=== PATIENT | female | born 1930 | race Two or more races ===

== ENCOUNTER 2016-12-16 16:18 | Inpatient (IN) | payer MEDICARE, OTHER ==
[~2016-12-16] VITALS: Ht 165.1 cm; Wt 79.4 kg
[~2016-12-16 16:18] MED LIST: ALEN70TA45 PO; ARIP10TA17 PO; CLON0.1T PO; DEXL60CA3 PO; DILT240C88 PO; FENO145T20 PO; FLUT1DIS IH; GABA-532 PO; GLYB1TAB2 PO; METO25TA6 PO; OMEG1CAP55 PO; PRED20TA PO; RIVA10TA PO; SOLI10TA PO; TIOT18CA3 IH
--- NOTE | 2016-12-16 16:40 | NUR ---
PT [id number] FROM HOME: SOB, COUGH, WEAKNESS, CHILLS AND DIAPHORESIS. DTR AT FOR INFORMATION, PER DTR HER MOM HAS BEEN SICK THE PAST FEW DAYS. VSS. SATING AT 95% RA. NOTED PRODUCTIVE COUGH. IV ACCESS SEAFOOD PREPARER. SAFETY AND COMFORT MEASURES PROVIDED. WILL MONITOR.
[2016-12-16] MEDS ORDERED: IV NS 0.9% 500 ML BAG IV ONE (17:00)
[2016-12-16] MEDS ORDERED: IV NS 0.9% 500 ML IV ONE (17:07)
[2016-12-16] MEDS ORDERED: IV SET PRIMARY PUMP SET 1 EA INFUS.SET MC ONE ×2 (17:07→21:11)
[2016-12-16 17:48] LABS: BASOPHILS % (AUTO) 0.3 % (0.0-2.0); EOSINOPHILS # (AUTO) 0.1 /CMM (0.0-0.7); EOSINOPHILS % (AUTO) 1.2 % (0.0-6.0); HEMATOCRIT 34 % (33-45); HEMOGLOBIN 11.1 g/dL (11.5-14.8); LYMPHOCYTES # (AUTO) 2.5 /CMM (0.8-4.8); MEAN CORPUSCULAR HEMOGLOBIN 30 PG (26.0-33.0); MEAN CORPUSCULAR HGB CONC 33 g/dl (31.0-36.0); MEAN CORPUSCULAR VOLUME 91 fL (82-100); MONOCYTES # (AUTO) 1.3 /CMM (0.1-1.30); MONOCYTES % (AUTO) 12.3 % (2.0-12.0); NEUTROPHILS # (AUTO) 6.8 /CMM (1.8-8.9); NEUTROPHILS % (AUTO) 63.2 % (43.0-81.0); PLATELET COUNT (AUTO) 184 /CMM (150-450); RDW COEFFICIENT OF VARIATION 14.2 (11.5-15.0); RED BLOOD CELL COUNT(AUTO) 3.67 MIL/uL (4.0-5.2); WHITE BLOOD COUNT (AUTO) 10.8 K/uL (4.3-11.0)
[2016-12-16 17:53] LABS: CALCIUM, SERUM 8.6 mg/dL (8.5-10.1); CARBON DIOXIDE 27 mmol/L (21-32); CHLORIDE 108 mmol/L (98-107); CREATININE 2.1 mg/dL (0.6-1.3); GLUCOSE 115 mg/dL (74-106); POTASSIUM 4.6 mmol/L (3.5-5.1); SODIUM SERUM 145 mmol/L (136-145); UREA NITROGEN, BLOOD 37 mg/dL (7-18)
[2016-12-16 18:03] LABS: TROPONIN I < 0.017 ng/mL (0.00-0.056)
[2016-12-16 18:05] LABS: ALANINE AMINOTRANSFERASE 22 U/L (12-78); ALBUMIN 3.1 g/dL (3.4-5.0); ALKALINE PHOSPHATASE 58 U/L (46-116); ASPARTATE AMINOTRANSFERASE 15 U/L (15-37); B-TYPE NATRIURETIC PEPTIDE 2118 PG/ML (0-125); BILIRUBIN,DIRECT 0.2 mg/dL (0.0-0.2); TOTAL PROTEIN, SERUM 7.3 g/dL (6.4-8.2)
[2016-12-16 18:06] LABS: INR 1.02 (0.87-1.13); PROTHROMBIN TIME 10.9 SECS (9.5-12.7)
[2016-12-16 18:07] LABS: APPEARANCE,URINE SL CLOUDY (CLEAR); BILIRUBIN,URINE NEGATIVE (NEGATIVE); BLOOD, URINE NEGATIVE Ery/uL (NEGATIVE); COLOR,URINE DARK YELLO (YELLOW); KETONES,URINE TRACE (NEGATIVE); LEUKOCYTE ESTERASE ,URINE NEGATIVE (NEGATIVE); NITRITE, URINE NEGATIVE (NEGATIVE); PH,URINE 5.5 (5.0-8.0); PROTEIN,URINE 1+ mg/dl (NEGATIVE); UGLUCOSE NEGATIVE (NEGATIVE); UROBILINOGEN,URINE 0.2 EU/dL (0.2)
[2016-12-16 18:20] LABS: BACTERIA,URINE Few /HPF (None Seen); RBC,URINE 0-2 /HPF (0-2); SQUAMOUS EPITHELIAL CELL,UR Few /HPF (None Seen); WBC,URINE 0-2 /HPF (0-3)
[2016-12-16 18:21] LABS: URINE AMORPHOUS URATE Moderate /HPF (None Seen)
--- NOTE | 2016-12-16 18:34 | NUR ---
KURT CALLED, GHASSAN HERRERA SCADA TECHNICIAN AMMUNITION ASSEMBLY II LABORER, TRANSFERRED CALL TO
--- NOTE | 2016-12-16 18:35 | NUR ---
CALLED NURSING SUP. FOR MS BED
[2016-12-16] MEDS ORDERED: RANO500T3 PO (18:44)
[2016-12-16] MEDS ORDERED: GLYB1TAB13 PO (18:44)
[2016-12-16] MEDS ORDERED: FURO40TA5 PO (18:44)
[2016-12-16] MEDS ORDERED: SPIR25TA4 PO (18:44)
[2016-12-16] MEDS ORDERED: OMEG1CAP40 PO (18:44)
[2016-12-16] MEDS ORDERED: DILT240C88 PO (18:44)
[2016-12-16] MEDS ORDERED: MAGN400T26 PO (18:44)
[2016-12-16] MEDS ORDERED: CLON0.1T PO (18:44)
[2016-12-16] MEDS ORDERED: VALS80TA2 PO (18:44)
[2016-12-16] MEDS ORDERED: ZOLP10TA6 PO (18:44)
[2016-12-16] MEDS ORDERED: ASPI81TA2 PO (18:44)
[2016-12-16] MEDS ORDERED: MEMA10TA PO (18:44)
--- NOTE | 2016-12-16 18:54 | NUR ---
REPORT REC'D FROM RENNY VELEZ FOR DARI. CANDELARIO CANTOR IS AT THE BEDSIDE.
--- NOTE | 2016-12-16 19:04 | NUR ---
REPORT GIVEN TO RENNY FUENTES FOR DARI.
[2016-12-16] MEDS ORDERED: ONDANSETRON HCL/PF 4 MG/2 ML VIAL IVP PRN (19:30)
[2016-12-16] MEDS ORDERED: HYDROCODONE/APAP 5/325MG 1 EACH TABLET PO PRN (19:30)
[2016-12-16] MEDS ORDERED: AZITHROMYCIN 500 MG in IV D5W 250 ML IV SCH (19:30)
[2016-12-16] MEDS ORDERED: MAG HYDROX/AL HYDROX/SIMETH 30 ML UDC PO PRN (19:30)
[2016-12-16] MEDS ORDERED: CEFTRIAXONE 1 G in IV D5W 50 ML IV SCH (19:30)
[2016-12-16] MEDS ORDERED: Z GUARD REMEDY 2 OZ OINT TP PRN (19:30)
[2016-12-16] MEDS ORDERED: MAGNESIUM HYDROXIDE 30 ML UDC PO PRN (19:30)
--- NOTE | 2016-12-16 19:38 | NUR ---
RN NOTES: RECEIVED PATIENT FROM ER ACCOMPANIED BY RN, WHILE DOING INITIAL INTERVIEW AND BODY ASSESSMENT CN FOUND OUT PATIENT IS FOR TELE, DX:PNEUMONIA, CALLED [facility] RACHEL AND ENDORSED TO AUBREE(RN) AT 2004 TRANSFER TO ROOM 310-2 AT 2010PM,
[2016-12-16 20:00] VITALS: BP 121/70
[2016-12-16] MEDS ORDERED: ZOLPIDEM TARTRATE 10 MG TABLET PO PRN (20:00)
[2016-12-16] MEDS ORDERED: CLONIDINE HCL 0.1 MG TABLET PO PRN (20:00)
--- NOTE | 2016-12-16 20:22 | NUR ---
RECEIVED PATIENT FROM JOHNNY WITH DX OF PNA, ALERT AND ORIENTED X3, SWEDISH SPEAKING, NO SOB, NO RESPIRATORY DISTRESS, NOTED PRODUCTIVE COUGH, LUNG SOUNDS WITH CONGESTION TO RIGHT LOWER LOBE, TOLERATING ROOM AIR, 02 SAT 95%, ABDOMEN SOFT AND NON-TENDER, ACTIVE BOWEL SOUNDS, GENERAL SKIN CONDITION CLEAR, EDEMA TO RIGHT LEG +1, ORIENTED TO ROOM, USE OF CALL LIGHT, MEDICATIONS, IV ABX THERAPY, NEEDS ATTENDED, GRAND DAUGHTER AT THE BEDSIDE, WILL CONTINUE TO MONITOR.
[2016-12-16 20:30] VITALS: BP 121/71
[2016-12-16] MEDS ORDERED: IV D5W 50 ML IV ONE (20:39)
[2016-12-16] MEDS ORDERED: CEFTRIAXONE 1 G VIAL ONE (20:39)
[2016-12-16] MEDS ORDERED: SECONDARY IV SET 1 EA INFUS.SET MC ONE ×2 (20:40→21:03)
[2016-12-16] MEDS ORDERED: AZITHROMYCIN 500 MG VIAL ONE (20:46)
[2016-12-16] MEDS ORDERED: IV NS 0.9% 250 ML IV ONE (21:03)
--- NOTE | 2016-12-16 22:19 | NUR ---
NEW ORDER OF MODERATE SLIDING SCALE, ORDER NOTED AND CARRIED OUT, PATIENT AND GRAND DAUGHTER MADE AWARE
[2016-12-16] MEDS ORDERED: INSULIN REGULAR, HUMAN 100 UNIT/ML 10 ML VIAL ONE (22:20)
[2016-12-16] MEDS ORDERED: IV D5W 250 ML IV ONE (22:24)
[2016-12-16] MEDS ORDERED: *INSULIN REGULAR(HUMULIN R)HUM 100 UNIT/ML VIAL SQ PRN (22:30)
[2016-12-16] MEDS ORDERED: DEXTROSE 50%-WATER 50 ML DISP.SYRIN IV PRN (22:30)
[2016-12-16] MEDS: BLOOD SUGAR DIAGNOSTIC 1 EACH STRIP VI SCH (22:54)
[2016-12-17] VITALS (7 sets, daily range): BP systolic 100–170; BP diastolic 47–90
[2016-12-17] MEDS ORDERED: ZOLPIDEM TARTRATE 10 MG TABLET ONE (00:55)
[2016-12-17] MEDS ORDERED: ACETAMINOPHEN 325 MG TABLET ONE (00:55)
[2016-12-17] MEDS: ACETAMINOPHEN 325 MG TABLET PO PRN (01:02)
--- NOTE | 2016-12-17 02:55 | NUR ---
PATIENT IS RESTLESS, CONFUSED AFTER AMBIEN 10 MG. HEART RATE UNSTABLE FROM 110 GOING UP TO 120. CALLED GRAND DAUGHTER FOR TRANSLATION, NO ANSWER. USED PHONE GEOPHYSICAL COMPUTER, HUMAN RESOURCES VICE PRESIDENT DOES NOT UNDERSTAND PT. LANGUAGE IS NOT SLOVENIAN.
--- NOTE | 2016-12-17 03:09 | NUR ---
PUT ON O2 VIA NC AT 2LPM, PATIENT CONFUSED, HEART RATE 124. EKG ORDERED STAT. PATIENT BEING MONITORED CLOSELY
[2016-12-17] MEDS ORDERED: GUAIFENESIN/D-METHORPHAN HB 5 ML UDC ONE (03:53)
[2016-12-17] MEDS ORDERED: DILTIAZEM HCL 25 MG IV ONE (03:59)
[2016-12-17] MEDS ORDERED: GUAIFENESIN/CODEINE 10 ML UDC PO PRN (04:00)
[2016-12-17] MEDS: GUAIFENESIN/D-METHORPHAN HB 5 ML UDC PO PRN ×2 (04:14→10:52)
[2016-12-17] MEDS: DILTIAZEM HCL 50 MG IV IV PRN ×2 (04:14→22:13)
--- NOTE | 2016-12-17 06:05 | NUR ---
GIVEN CARDIZEM IVP, HEART WENT DOWN TO 104 BPM, FLUCTUATES TO 109 .
[2016-12-17] MEDS: BLOOD SUGAR DIAGNOSTIC 1 EACH STRIP VI SCH ×4 (06:28→21:08)
[2016-12-17] MEDS: INSULIN REGULAR, HUMAN 100 UNIT/ML 3 ML VIAL SQ PRN ×2 (06:31→13:04)
--- NOTE | 2016-12-17 06:41 | NUR ---
PATIENT IS ALERT AND AWAKE, NO DISTRESS, NO SOB, DENIES ANY PAIN AT THIS TIME, HEART RATE FLUCTUATES FROM 110 TO 120, GIVEN CARDIZEM IVP, HR WENT DOWN TO 100 THEN BACKS UP TO 109, BG 73 MG/DL, NO INSULIN COVERAGE, GIVEN ORANGE JUICE, NO S/S OF HYPOGLYCEMIA. FALL RISK, BED ALARM TURNED ON, CALL LIGHT WITHIN REACH.
[2016-12-17 06:58] LABS: BASOPHILS % (AUTO) 0.3 % (0.0-2.0); EOSINOPHILS # (AUTO) 0.1 /CMM (0.0-0.7); HEMATOCRIT 31 % (33-45); HEMOGLOBIN 10.5 g/dL (11.5-14.8); LYMPHOCYTES # (AUTO) 2.6 /CMM (0.8-4.8); LYMPHOCYTES % (AUTO) 24.6 % (20.0-44.0); MEAN CORPUSCULAR HEMOGLOBIN 31 PG (26.0-33.0); MEAN CORPUSCULAR HGB CONC 34 g/dl (31.0-36.0); MEAN CORPUSCULAR VOLUME 90 fL (82-100); MONOCYTES # (AUTO) 1.2 /CMM (0.1-1.30); MONOCYTES % (AUTO) 11.8 % (2.0-12.0); NEUTROPHILS # (AUTO) 6.5 /CMM (1.8-8.9); NEUTROPHILS % (AUTO) 62.3 % (43.0-81.0); PLATELET COUNT (AUTO) 150 /CMM (150-450); RDW COEFFICIENT OF VARIATION 14.1 (11.5-15.0); RED BLOOD CELL COUNT(AUTO) 3.43 MIL/uL (4.0-5.2); WHITE BLOOD COUNT (AUTO) 10.4 K/uL (4.3-11.0)
--- NOTE | 2016-12-17 07:30 | NUR ---
TELE/RN OPENING NOTES PT. IS AWAKE, A&OX3. PT. IS GEORGIAN AND MACEDONIAN SPEAKING. PT. IS ON TELE MONITOR WITH SINUS TACHY RHYTHM 110 BPM. NO SOB, PT. IS BREATHING ON ROOM AIR UNLABORED, AND EVENLY. NO S/S OF ACUTE DISTRESS. PT. HAS A LEFT ANTECUBITAL IV SALINE LOCK GAUGE 18 WITH IV FLUIDS RUNNING AT 5ML/HR. PT. HAS WALKER NEAR BEDSIDE FOR AMBULATION AND BED ALARM IS ON. BED IS IN LOW POSITION, 2 SIDE RAILS UP, AND CALL LIGHT WITHIN REACH. PT. WAS INSTRUCTED TO USE CALL LIGHT FOR ASSISTANCE.
[2016-12-17 07:33] LABS: CALCIUM, SERUM 8.3 mg/dL (8.5-10.1); CARBON DIOXIDE 24 mmol/L (21-32); CHLORIDE 106 mmol/L (98-107); CREATININE 1.4 mg/dL (0.6-1.3); GLUCOSE 78 mg/dL (74-106); MAGNESIUM 1.4 mg/dL (1.8-2.4); PHOSPHORUS 3.4 mg/dL (2.5-4.9); POTASSIUM 4.1 mmol/L (3.5-5.1); SODIUM SERUM 141 mmol/L (136-145); UREA NITROGEN, BLOOD 31 mg/dL (7-18)
[2016-12-17 07:52] LABS: CHOLESTEROL 127 mg/dL (<200); HDL CHOLESTEROL 21 mg/dL (40-60); LDL 77 mg/dL (0-99); THYROID STIMULATING HORMONE 0.015 uIU/mL (0.358-3.74); TRIGLYCERIDES 146 mg/dL (30-150)
[2016-12-17] MEDS ORDERED: ALENDRONATE 70 MG TABLET PO SCH (08:16)
[2016-12-17] MEDS ORDERED: Medication Not On Formulary EA (Omega-3 Fatty Acids/Fish Oil (Omega 3 1,000 Mg Softgel) PO SCH (09:00)
[2016-12-17] MEDS: METOPROLOL TARTRATE 25 MG TABLET PO SCH ×2 (09:00→17:00)
--- NOTE | 2016-12-17 09:00 | NUR ---
TELE/RN NOTES SPOKE WITH PT.'S GRANDDAUGHTER TO BRING PT.'S MEDICATIONS FROM HOME INCLUDING DEXILANT, RANEXA, AND OMEGA 3 CAPSULS.
[2016-12-17] MEDS ORDERED: DILTIAZEM HCL 25 MG IV IV ONE (10:00)
[2016-12-17] MEDS: FLUTICASONE/VILANTEROL 1 EACH BLST.W.DEV IH SCH (10:51)
[2016-12-17] MEDS: SPIRONOLACTONE 25 MG TABLET PO SCH (10:52)
[2016-12-17] MEDS: ASPIRIN 81 MG TAB.CHEW PO SCH (10:52)
[2016-12-17] MEDS: MEMANTINE HCL 5 MG TABLET PO SCH ×2 (10:53→19:11)
[2016-12-17] MEDS: OXYBUTYNIN CHLORIDE 5 MG TABLET PO SCH ×3 (10:53→19:11)
[2016-12-17] MEDS: DILTIAZEM HCL CD 240 MG PO SCH (10:53)
[2016-12-17] MEDS: FUROSEMIDE 40 MG TABLET PO SCH (10:54)
[2016-12-17] MEDS: MAGNESIUM OXIDE 400 MG TABLET PO SCH (10:54)
[2016-12-17] MEDS: glyBURIDE/METFORMIN 5-500 MG 1 EACH TABLET PO SCH ×2 (10:55→19:11)
[2016-12-17] MEDS: FENOFIBRATE NANOCRYS (145 MG) 145 MG TABLET PO SCH (10:55)
--- NOTE | 2016-12-17 11:00 | NUR ---
TELE/RN NOTES PT. HAD ATRIAL FIBRILLATION IN THE 140'S BPM. PER MD ORDER, PT. WAS GIVEN CARDIZEM IV PUSH, AND HEART RATE SLOWED TO 120'S BPM. CARDIZEM WAS GIVEN PO, AND HEART RATE SLOWED DOWN TO 80 -90'S BPM. NO S/S OF ACUTE DISTRESS.
[2016-12-17] MEDS ORDERED: SECONDARY IV SET 1 EA INFUS.SET MC ONE ×2 (11:18→20:13)
[2016-12-17] MEDS: Magnesium 1GM/D5W 100ML PREMIX 100 ML IV SCH ×4 (11:27→15:32)
--- NOTE | 2016-12-17 19:30 | NUR ---
TELE/RN CLOSING NOTES PT. IS IN BED AWAKE, A&OX3. NO SOB, BREATHING EVENLY AND UNLABORED ON OXYGEN AT 2L/MIN WEARING A NASAL CANNULA. PT.'S HEAD OF BED IS UP.TELE MONITOR READING ATRIAL FIBRILLATION IN THE 80-90'S. IV FLUIDS RUNNING AT 5ML/HR ON LEFT ANTECUBITAL IV SITE. PT. IS AMBULATORY AND USES A WALKER ON AMBULATION. BED IS IN LOW POSITION, 2 SIDE RAILS UP, AND CALL LIGHT WITHIN REACH, AND INSTRUCTED PT. TO CALL FOR ASSISTANCE.
--- NOTE | 2016-12-17 19:30 | NUR ---
TELE/RN OPENING NOTES PT. IS AWAKE, A&OX3. PT. IS SIN[place] AND MALAGASY SPEAKING. PT. IS ON TELE MONITOR WITH SINUS TACHY RHYTHM 104 BPM. NO SOB, PT. IS BREATHING ON ROOM AIR UNLABORED, AND EVENLY. NO S/S OF ACUTE DISTRESS. PT. HAS A LEFT ANTECUBITAL IV SALINE LOCK GAUGE 18 WITH IV FLUIDS RUNNING AT 5ML/HR. PT. HAS WALKER NEAR BEDSIDE FOR AMBULATION AND BED ALARM IS ON. BED IS IN LOW POSITION, 2 SIDE RAILS UP, AND CALL LIGHT WITHIN REACH. PT. WAS INSTRUCTED TO USE CALL LIGHT FOR ASSISTANCE.
[2016-12-17] MEDS: CEFTRIAXONE 1 G in IV D5W 50 ML IV SCH (21:08)
[2016-12-17] MEDS: AZITHROMYCIN 500 MG in IV D5W 250 ML IV SCH (22:10)
--- NOTE | 2016-12-17 22:30 | NUR ---
OPERATOR AND TRUCK DRIVER NOTE HEART RATE 142. 10MG CARDIZEM GIVEN PO ORDERED. PATIENT DENIES ANY DISCOMFORT AT THIS TIME. WILL CONTINUE TO MONITOR.
--- NOTE | 2016-12-17 23:00 | NUR ---
INDUSTRIAL WORKERS NOTE PATIENTS HR IS 98. WILL CONTINUE TO MONITOR.
[2016-12-18] VITALS: BP 138/67
[2016-12-18 04:00] VITALS: BP 98/50
[2016-12-18 06:31] LABS: CALCIUM, SERUM 8.8 mg/dL (8.5-10.1); CARBON DIOXIDE 27 mmol/L (21-32); CHLORIDE 104 mmol/L (98-107); CREATININE 1.3 mg/dL (0.6-1.3); GLUCOSE 117 mg/dL (74-106); MAGNESIUM 2.3 mg/dL (1.8-2.4); POTASSIUM 4.3 mmol/L (3.5-5.1); SODIUM SERUM 140 mmol/L (136-145); UREA NITROGEN, BLOOD 25 mg/dL (7-18)
[2016-12-18] MEDS: BLOOD SUGAR DIAGNOSTIC 1 EACH STRIP VI SCH ×3 (06:38→22:00)
[2016-12-18 06:39] LABS: BASOPHILS % (AUTO) 0.2 % (0.0-2.0); EOSINOPHILS # (AUTO) 0.2 /CMM (0.0-0.7); EOSINOPHILS % (AUTO) 1.6 % (0.0-6.0); HEMATOCRIT 32 % (33-45); HEMOGLOBIN 10.9 g/dL (11.5-14.8); LYMPHOCYTES # (AUTO) 2.8 /CMM (0.8-4.8); LYMPHOCYTES % (AUTO) 27.5 % (20.0-44.0); MEAN CORPUSCULAR HEMOGLOBIN 31 PG (26.0-33.0); MEAN CORPUSCULAR HGB CONC 34 g/dl (31.0-36.0); MEAN CORPUSCULAR VOLUME 90 fL (82-100); MONOCYTES # (AUTO) 1.1 /CMM (0.1-1.30); MONOCYTES % (AUTO) 10.7 % (2.0-12.0); NEUTROPHILS # (AUTO) 6.1 /CMM (1.8-8.9); PLATELET COUNT (AUTO) 173 /CMM (150-450); RDW COEFFICIENT OF VARIATION 13.9 (11.5-15.0); RED BLOOD CELL COUNT(AUTO) 3.55 MIL/uL (4.0-5.2); WHITE BLOOD COUNT (AUTO) 10.1 K/uL (4.3-11.0)
[2016-12-18 06:53] VITALS: BP 94/53
--- NOTE | 2016-12-18 08:00 | NUR ---
TELE/RN OPENING NOTES PT. IS IN BED A&OX3. NO SOB, BREATHING ON ROOM AIR UNLABORED, AND EVENLY. SATURATION AT 93%. NO S/S OF ACUTE DISTRESS. PT.IS ON TELE MONITOR READING ATRIAL FIBRILLATION WITH HEART RATE IN THE 90 TO 100'S. PT. DENIES PAIN, AND SLEPT WELL LAST NIGHT. WALKER IS NEAR BEDSIDE. BED IN LOW POSITION, 2 SIDE RAILS UP, AND CALL LIGHT WITHIN REACH.
[2016-12-18] MEDS: FLUTICASONE/VILANTEROL 1 EACH BLST.W.DEV IH SCH (08:30)
[2016-12-18] MEDS: FENOFIBRATE NANOCRYS (145 MG) 145 MG TABLET PO SCH (08:30)
[2016-12-18] MEDS: glyBURIDE/METFORMIN 5-500 MG 1 EACH TABLET PO SCH ×2 (08:31→18:40)
[2016-12-18] MEDS: DILTIAZEM HCL CD 240 MG PO SCH (08:33)
[2016-12-18] MEDS: METOPROLOL TARTRATE 25 MG TABLET PO SCH ×2 (08:33→18:42)
[2016-12-18] MEDS: OXYBUTYNIN CHLORIDE 5 MG TABLET PO SCH ×3 (08:34→18:40)
[2016-12-18] MEDS: MEMANTINE HCL 5 MG TABLET PO SCH ×2 (08:34→18:40)
[2016-12-18] MEDS: SPIRONOLACTONE 25 MG TABLET PO SCH (08:34)
[2016-12-18] MEDS: FUROSEMIDE 40 MG TABLET PO SCH (08:34)
[2016-12-18] MEDS: MAGNESIUM OXIDE 400 MG TABLET PO SCH (08:34)
[2016-12-18] MEDS: ASPIRIN 81 MG TAB.CHEW PO SCH (08:34)
--- NOTE | 2016-12-18 08:59 | NUR ---
MS/RN NOTES PT. WAS DISCHARGED FROM TELE MONITORING PER MD ORDER.
[2016-12-18] MEDS: INSULIN REGULAR, HUMAN 100 UNIT/ML 3 ML VIAL SQ PRN ×2 (12:17→18:38)
[2016-12-18] MEDS: IPRATROPIUM NEB FS 0.5 MG/2.5 ML AMPUL.NEB NEB SCH ×2 (14:54→20:12)
[2016-12-18 16:00] VITALS: BP 102/78
[2016-12-18] MEDS: LACTOBACILLUS RHAMNOSUS GG 1 EACH CAP.SPRINK PO SCH (18:40)
[2016-12-18 20:00] VITALS: BP 123/67
--- NOTE | 2016-12-18 20:00 | NUR ---
MS FOREIGN EXCHANGE DEALER INITIAL NOTES SEEN PT SITTING ON HER CHAIR WITHOUT ANY SIGNS OF ANY ACUTE DISTRESS NOTED. HEPLOCK AT THIS TIME. ABLT O AMBULATE ON STEADY GAIT. DENIES ANY PAIN OR ANY DISCOMFORT.RE-ORIENTED WHERE SHE AT AND HOW TO USED THE CALL LIGHT SYSTEM. PUT THE TV ON SAMMARINESE CHANNEL AND PT SMILED AND SAYING "THANK YOU ". KEPT HER WARM AND COMFORTABLE AT ALL TIMES. WILL CONTINUE TO MONITOR. PLACE CALL LIGHT AT REACH.
--- NOTE | 2016-12-18 20:28 | NUR ---
MS/RN CLOSING NOTES PT. IS IN BED AWAKE, A&OX3. NO SOB, BREATHING ON OXYGEN 2L/MIN. NO S/S OF ACUTE DISTRESS. IV ACCESS ON LEFT ANTECUBITAL SITE. BED IS IN LOW POSITION, 2 SIDE RAILS UP, ALL NEEDS MET, AND CALL LIGHT WITHIN REACH. WILL ENDORSE REPORT TO COVER CREASER NURSE.
--- NOTE | 2016-12-18 21:15 | NUR ---
RIGHT OF WAY AGENT.NOTES PT DAUGHTER CAME WITH 2 BOTTLE OF PATIENT MEDICATION THAT NEED TO TAKE IT FOR TARA. SPOKE TO HER THAT WE WILL FOLLOW UP TO HIS MD IN AM . I WILL ENDORSE TO AM NURSE AND SENT TO THE PHARMACY WELL.
[2016-12-18] MEDS: CEFTRIAXONE 1 G in IV D5W 50 ML IV SCH (21:24)
[2016-12-18] MEDS: AZITHROMYCIN 500 MG in IV D5W 250 ML IV SCH (22:04)
--- NOTE | 2016-12-18 22:18 | NUR ---
COMPLAINT EVALUATION SUPERVISOR NOTES ACCU CHECKED BLOOD SUGAR 120, NO INSULIN GIVEN, NO SIGNS OF HYPO GLYCEMIA NOTED. KEPT HER COMFORTABLE AT ALL TIMES. WILL CONTINUE TO MONITOR.
[2016-12-19] MEDS: ACETAMINOPHEN 325 MG TABLET PO PRN (01:04)
--- NOTE | 2016-12-19 01:07 | NUR ---
TERRA COTTA ROOFER HELPER/NOTES PT. WOKE UP AND ASKING FOR HEADACHE MEDICINES. TYLENOL GIVEN 650 PO ORDERED. NO N/V NOTED./ KEPT HER WARM AND COMFORTABLE AT ALL TIMES. WILL CONTINUE TO MONITOR.
[2016-12-19] MEDS: IPRATROPIUM NEB FS 0.5 MG/2.5 ML AMPUL.NEB NEB SCH ×4 (01:30→19:52)
[2016-12-19] MEDS: BLOOD SUGAR DIAGNOSTIC 1 EACH STRIP VI SCH ×4 (06:20→22:22)
[2016-12-19 07:12] LABS: BASOPHILS % (AUTO) 0.5 % (0.0-2.0); HEMATOCRIT 31 % (33-45); HEMOGLOBIN 10.3 g/dL (11.5-14.8); LYMPHOCYTES % (AUTO) 32.9 % (20.0-44.0); MEAN CORPUSCULAR HEMOGLOBIN 30 PG (26.0-33.0); MEAN CORPUSCULAR HGB CONC 34 g/dl (31.0-36.0); MEAN CORPUSCULAR VOLUME 90 fL (82-100); MONOCYTES % (AUTO) 12.5 % (2.0-12.0); NEUTROPHILS % (AUTO) 52.1 % (43.0-81.0); PLATELET COUNT (AUTO) 186 /CMM (150-450); RDW COEFFICIENT OF VARIATION 13.8 (11.5-15.0); RED BLOOD CELL COUNT(AUTO) 3.38 MIL/uL (4.0-5.2); WHITE BLOOD COUNT (AUTO) 8.6 K/uL (4.3-11.0)
[2016-12-19 07:13] LABS: EOSINOPHILS # (AUTO) 0.2 /CMM (0.0-0.7); LYMPHOCYTES # (AUTO) 2.8 /CMM (0.8-4.8); MONOCYTES # (AUTO) 1.1 /CMM (0.1-1.30); NEUTROPHILS # (AUTO) 4.5 /CMM (1.8-8.9)
[2016-12-19 07:21] LABS: CALCIUM, SERUM 8.8 mg/dL (8.5-10.1); CARBON DIOXIDE 28 mmol/L (21-32); CHLORIDE 104 mmol/L (98-107); CREATININE 1.6 mg/dL (0.6-1.3); GLUCOSE 108 mg/dL (74-106); MAGNESIUM 2.1 mg/dL (1.8-2.4); POTASSIUM 4.5 mmol/L (3.5-5.1); SODIUM SERUM 139 mmol/L (136-145); UREA NITROGEN, BLOOD 34 mg/dL (7-18)
--- NOTE | 2016-12-19 07:30 | NUR ---
RECEIVED PT. IN AM ALERT AND ORIENTED X2-3.COOPERATIVE,MED COMPLIANT.OCC. NEED THERMOSTAT MAKER FOR MACEDONIAN SPEAKING.
[2016-12-19 08:00] VITALS: BP 106/56
--- NOTE | 2016-12-19 08:08 | NUR ---
PIPE LINE WALKER/CLOSING NOTES PT AWAKE AND ALERT EATING HER BREAKFAST AND DENIES ANY PAIN. STABLE ASHLEY THE NIGHT AND ALL DUE MEDS GIVEN. NO SOB NOTED. KEPT HER WARM AND COMFORTABLE AT ALL TIMES. PLACE CALL LIGHT AT REACH. WILL ENDORSE TO AM NURSE FOR CONTINUITY OF CARE.
[2016-12-19] MEDS ORDERED: GUAIFENESIN/CODEINE 10 ML UDC PO PRN (08:30)
[2016-12-19] MEDS ORDERED: FUROSEMIDE 40 MG TABLET PO SCH (09:00)
[2016-12-19] MEDS ORDERED: ENOXAPARIN SODIUM 40 MG/0.4 ML DISP.SYRIN SQ SCH (09:00)
[2016-12-19] MEDS: METOPROLOL TARTRATE 25 MG TABLET PO SCH ×2 (09:00→17:00)
[2016-12-19] MEDS: SPIRONOLACTONE 25 MG TABLET PO SCH (09:00)
[2016-12-19] MEDS: FLUTICASONE/VILANTEROL 1 EACH BLST.W.DEV IH SCH (10:11)
[2016-12-19] MEDS: FENOFIBRATE NANOCRYS (145 MG) 145 MG TABLET PO SCH (10:12)
[2016-12-19] MEDS: glyBURIDE/METFORMIN 5-500 MG 1 EACH TABLET PO SCH ×2 (10:12→18:27)
[2016-12-19] MEDS: MAGNESIUM OXIDE 400 MG TABLET PO SCH (10:12)
[2016-12-19] MEDS: LACTOBACILLUS RHAMNOSUS GG 1 EACH CAP.SPRINK PO SCH ×2 (10:12→18:27)
[2016-12-19] MEDS: MEMANTINE HCL 5 MG TABLET PO SCH ×2 (10:12→18:27)
[2016-12-19] MEDS: ASPIRIN 81 MG TAB.CHEW PO SCH (10:12)
[2016-12-19] MEDS: OXYBUTYNIN CHLORIDE 5 MG TABLET PO SCH ×3 (10:12→18:27)
--- NOTE | 2016-12-19 11:30 | NUR ---
DTR. CALLING IN REFERRED TO GARMENT WORKER.
[2016-12-19] MEDS: ENOXAPARIN SODIUM 30 MG/0.3 ML DISP.SYRIN SQ SCH (12:39)
[2016-12-19] MEDS: INSULIN REGULAR, HUMAN 100 UNIT/ML 3 ML VIAL SQ PRN ×2 (12:41→22:14)
[2016-12-19] MEDS: DILTIAZEM HCL CD 240 MG PO SCH (14:11)
[2016-12-19 16:00] VITALS: BP 103/65
--- NOTE | 2016-12-19 18:00 | NUR ---
NO CHG. IN STATUS.
[2016-12-19] MEDS: CEFTRIAXONE 1 G in IV D5W 50 ML IV SCH (19:47)
--- NOTE | 2016-12-19 19:50 | NUR ---
MS RN INITIAL NOTES PT LAYING IN BED WITHOUT ANY SIGNS OF ANY ACUTE DISTRESS NOTED.A/O X3. HEPLOCK AT THIS TIME. ABLE TO AMBULATE ON STEADY GAIT. DENIES ANY PAIN OR ANY DISCOMFORT. KEPT HER WARM AND COMFORTABLE AT ALL TIMES. WILL CONTINUE TO MONITOR. PLACE CALL LIGHT AT REACH.
[2016-12-19 20:00] VITALS: BP 136/91
[2016-12-19] MEDS: AZITHROMYCIN 500 MG in IV D5W 250 ML IV SCH (21:04)
[2016-12-19 22:00] VITALS: BP 136/91
--- NOTE | 2016-12-19 22:07 | NUR ---
MS RN NOTE PT COMPLAINS OF FEELING NASALLY CONGESTED, SPOKE WITH DR. BARRAZA. GOT ORDER FOR FLONASE. THERE IS NOT FLONASE AVAILABLE ON THE FLOOR. ORDER WAS ENTERED TO CARRY OUT IN THE AM
[2016-12-19] MEDS ORDERED: FLUTICASONE PROPIONATE 16 GM BOTTLE NS PRN (23:00)
[2016-12-20] MEDS: IPRATROPIUM NEB FS 0.5 MG/2.5 ML AMPUL.NEB NEB SCH ×3 (00:45→13:10)
[2016-12-20 06:42] LABS: BASOPHILS % (AUTO) 0.2 % (0.0-2.0); EOSINOPHILS # (AUTO) 0.2 /CMM (0.0-0.7); HEMATOCRIT 30 % (33-45); HEMOGLOBIN 10.3 g/dL (11.5-14.8); LYMPHOCYTES # (AUTO) 2.3 /CMM (0.8-4.8); LYMPHOCYTES % (AUTO) 26.3 % (20.0-44.0); MEAN CORPUSCULAR HEMOGLOBIN 31 PG (26.0-33.0); MEAN CORPUSCULAR HGB CONC 34 g/dl (31.0-36.0); MEAN CORPUSCULAR VOLUME 91 fL (82-100); MONOCYTES # (AUTO) 0.9 /CMM (0.1-1.30); MONOCYTES % (AUTO) 9.7 % (2.0-12.0); NEUTROPHILS # (AUTO) 5.5 /CMM (1.8-8.9); NEUTROPHILS % (AUTO) 61.8 % (43.0-81.0); PLATELET COUNT (AUTO) 193 /CMM (150-450); RDW COEFFICIENT OF VARIATION 13.9 (11.5-15.0); RED BLOOD CELL COUNT(AUTO) 3.35 MIL/uL (4.0-5.2); WHITE BLOOD COUNT (AUTO) 8.8 K/uL (4.3-11.0)
[2016-12-20] MEDS: METOPROLOL TARTRATE 25 MG TABLET PO SCH ×2 (07:01→17:28)
[2016-12-20 07:05] LABS: CALCIUM, SERUM 8.9 mg/dL (8.5-10.1); CARBON DIOXIDE 26 mmol/L (21-32); CHLORIDE 105 mmol/L (98-107); CREATININE 1.3 mg/dL (0.6-1.3); GLUCOSE 69 mg/dL (74-106); POTASSIUM 4.2 mmol/L (3.5-5.1); SODIUM SERUM 141 mmol/L (136-145); UREA NITROGEN, BLOOD 31 mg/dL (7-18)
--- NOTE | 2016-12-20 07:06 | NUR ---
MS RENNY LOPRESSOR PER DR STEVENSON, LOPRESSOR WAS ADMINISTERED EARLY DUE TO DURING HIS ASSESSMENT HE FELT A QUICK PULSE
--- NOTE | 2016-12-20 07:06 | NUR ---
MS RN CLSOING NOTE PT IS IN BED AWAKE AND RELAXING. NO SOB AND NO COMPLAINTS OF PAIN AT THIS TIME. POSSIBLE DISCHARGE TODAY. WILL ENDORSE TO SAFETY TRAINER
--- NOTE | 2016-12-20 07:27 | NUR ---
found on room air 2L nasal cannula was resumed per saturation
[2016-12-20] MEDS: BLOOD SUGAR DIAGNOSTIC 1 EACH STRIP VI SCH ×3 (07:30→17:38)
[2016-12-20] MEDS ORDERED: PANTOPRAZOLE 40 MG TABLET.DR PO SCH (07:30)
[2016-12-20 08:00] VITALS: BP 122/72
[2016-12-20] MEDS: FENOFIBRATE NANOCRYS (145 MG) 145 MG TABLET PO SCH (11:49)
[2016-12-20] MEDS: LACTOBACILLUS RHAMNOSUS GG 1 EACH CAP.SPRINK PO SCH ×2 (11:50→17:27)
[2016-12-20] MEDS: glyBURIDE/METFORMIN 5-500 MG 1 EACH TABLET PO SCH ×2 (11:50→17:27)
[2016-12-20] MEDS: DILTIAZEM HCL CD 240 MG PO SCH (11:50)
[2016-12-20] MEDS: OXYBUTYNIN CHLORIDE 5 MG TABLET PO SCH ×3 (11:52→17:30)
[2016-12-20] MEDS: SPIRONOLACTONE 25 MG TABLET PO SCH (11:52)
[2016-12-20] MEDS: ENOXAPARIN SODIUM 30 MG/0.3 ML DISP.SYRIN SQ SCH (11:52)
[2016-12-20] MEDS: MAGNESIUM OXIDE 400 MG TABLET PO SCH (11:52)
[2016-12-20] MEDS: ASPIRIN 81 MG TAB.CHEW PO SCH (11:52)
[2016-12-20] MEDS: MEMANTINE HCL 5 MG TABLET PO SCH ×2 (11:53→17:27)
[2016-12-20] MEDS: INSULIN REGULAR, HUMAN 100 UNIT/ML 3 ML VIAL SQ PRN (12:01)
[2016-12-20] MEDS: FLUTICASONE/VILANTEROL 1 EACH BLST.W.DEV IH SCH (12:03)
--- NOTE | 2016-12-20 15:55 | NUR ---
Patient spouse requesting taxi voucher for d/c. Says he does not have money to go without. Spouse assisting patient at bedside taking bed bath and changing garment. Says he had assisted but her gown got wet. He was assisted to button the arm and bow tie the neck by spouse.
[2016-12-20 16:00] VITALS: BP_SYST 130; BP_DIAS 66; BP_DIAS 76
[2016-12-20 17:28] VITALS: BP 130/76
== END 2016-12-20 19:47 | disposition home or self-care (01) | DRG 682 ==
LOC: ER 16:19 → MEDSG2 19:18 → TELE 20:27 → MED 12-18 09:00
PROVIDERS: ADMIT Nurse Practitioner Acute Care; ATTEND Nurse Practitioner Acute Care
DX: N17.0 Acute kidney failure with tubular necrosis (principal); J96.01 Acute respiratory failure with hypoxia; I13.0 Hypertensive heart and chronic kidney disease with heart failure and stage 1 through stage 4 chronic kidney disease, or unspecified chronic kidney disease; E44.1 Mild protein-calorie malnutrition; I50.32 Chronic diastolic (congestive) heart failure; I48.92 Unspecified atrial flutter; E11.22 Type 2 diabetes mellitus with diabetic chronic kidney disease; N18.9 Chronic kidney disease, unspecified; E83.42 Hypomagnesemia; E86.0 Dehydration; I25.10 Atherosclerotic heart disease of native coronary artery without angina pectoris; Z85.038 Personal history of other malignant neoplasm of large intestine; Z86.73 Personal history of transient ischemic attack (TIA), and cerebral infarction without residual deficits; D63.8 Anemia in other chronic diseases classified elsewhere; E88.09 Other disorders of plasma-protein metabolism, not elsewhere classified; J40 Bronchitis, not specified as acute or chronic; I48.91 Unspecified atrial fibrillation; E86.9 Volume depletion, unspecified; Z68.29 Body mass index [BMI] 29.0-29.9, adult; E05.90 Thyrotoxicosis, unspecified without thyrotoxic crisis or storm; Z79.899 Other long term (current) drug therapy
CPT/HCPCS: 36415; 71010-TC; 80048-TC; 80061-TC; 80076-TC; 81000-TC; 82962-TC; 83605-TC; 83735-TC; 83880; 84100-TC; 84439-TC; 84443-TC; 84484-TC; 85025-TC; 85730-TC; 87040-TC; 87081-TC; 87086-TC; 93307-TC; 94799-TC; 97001-TC; 97116-TC; 97530-TC; A4606; J0456; J0696; J1650; J1815; J3475; J3490; J7040; J7050; J7060; Z7610

== ENCOUNTER 2018-11-11 15:34 | Inpatient (IN) | payer MEDICARE, OTHER ==
[~2018-11-11] VITALS: Ht 157.5 cm; Wt 77.1 kg
[~2018-11-11 15:34] MED LIST changes: -ALEN70TA45 PO; +ALEN70TA6 PO; -ARIP10TA17 PO; +ASPI-1169 PO; -FENO145T20 PO; +FENO145T35 PO; +FURO40TA5 PO; -GABA-532 PO; +GLYB-214 PO; -GLYB1TAB2 PO; +MAGN400T26 PO; +MEMA10TA PO; +OMEG1CAP40 PO; -OMEG1CAP55 PO; -PRED20TA PO; +RANO500T3 PO; -RIVA10TA PO; -SOLI10TA PO; +SOLI10TA2 PO; +SPIR25TA6 PO; +VALS80TA2 PO; +ZOLP10TA6 PO
[2018-11-11 16:15] LABS: BASOPHILS # (AUTO) 0.1 /CMM (0.0-0.2); EOSINOPHILS % (AUTO) 1.4 % (0.0-6.0); HEMATOCRIT 35 % (33-45); LYMPHOCYTES # (AUTO) 1.9 /CMM (0.8-4.8); LYMPHOCYTES % (AUTO) 30.4 % (20.0-44.0); MEAN CORPUSCULAR HGB CONC 34 g/dl (31.0-36.0); MEAN CORPUSCULAR VOLUME 93 fL (82-100); MONOCYTES # (AUTO) 0.6 /CMM (0.1-1.30); MONOCYTES % (AUTO) 10.1 % (2.0-12.0); NEUTROPHILS # (AUTO) 3.6 /CMM (1.8-8.9); NEUTROPHILS % (AUTO) 57.1 % (43.0-81.0); PLATELET COUNT (AUTO) 146 /CMM (150-450); RED BLOOD CELL COUNT(AUTO) 3.77 MIL/uL (4.0-5.2); WHITE BLOOD COUNT (AUTO) 6.2 K/uL (4.3-11.0)
[2018-11-11 16:22] LABS: CARBON DIOXIDE 29 mmol/L (21-32); CHLORIDE 107 mmol/L (98-107); CREATININE 1.4 mg/dL (0.6-1.3); GLUCOSE 152 mg/dL (74-106); POTASSIUM 4.5 mmol/L (3.5-5.1); SODIUM SERUM 145 mmol/L (136-145); UREA NITROGEN, BLOOD 33 mg/dL (7-18)
--- NOTE | 2018-11-11 16:30 | NUR ---
PATIENT BIB DAUGHTER, C/O LT CP "PRESSURE", NON RADIATING COMES&GOES X 1WK. ALSO C/O WEAKNESS & DIZZINESS. ON 02 @ 2LPM VIA NC, BREATHING EVENLY AND UNLABORED. CONNECTED TO THE MONITOR AND PULSE OX. KEPT COMFORTABLE. WILL CONTINUE TO MONITOR ACCORDINGLY.
--- NOTE | 2018-11-11 18:05 | NUR ---
CALLED NURSING SUP. FOR TELE BED
--- NOTE | 2018-11-11 18:27 | NUR ---
TELE 308-6
[2018-11-11] MEDS ORDERED: MAGNESIUM HYDROXIDE 30 ML UDC PO PRN (18:30)
[2018-11-11] MEDS ORDERED: CLONIDINE HCL 0.1 MG TABLET PO PRN (18:30)
[2018-11-11] MEDS ORDERED: ACETAMINOPHEN 325 MG TABLET PO PRN (18:30)
[2018-11-11] MEDS ORDERED: ONDANSETRON HCL/PF 4 MG/2 ML VIAL IVP PRN (18:30)
[2018-11-11] MEDS ORDERED: MAG HYDROX/AL HYDROX/SIMETH 30 ML UDC PO PRN (18:30)
[2018-11-11] MEDS ORDERED: TEMAZEPAM 15 MG CAPSULE PO PRN (18:30)
[2018-11-11] MEDS ORDERED: NITROGLYCERIN 0.4 MG/TAB BOTTLE SL ONE (18:30)
[2018-11-11] MEDS ORDERED: HYDROCODONE/APAP 5/325MG 1 EACH TABLET PO PRN (18:30)
[2018-11-11] MEDS ORDERED: MORPHINE SULFATE INJ 2 MG/ML DISP.SYRIN IV PRN (18:30)
--- NOTE | 2018-11-11 18:35 | NUR ---
report given to Marie LAWSON and for nusrat.
[2018-11-11] MEDS ORDERED: DEXTROSE 50%-WATER 50 ML DISP.SYRIN IV PRN (19:00)
--- NOTE | 2018-11-11 19:05 | NUR ---
wheeled patient via gurney accompanied by RN and emt in no apparent distress noted going to room 308-1.
--- NOTE | 2018-11-11 19:45 | NUR ---
TELE/RN OPENING NOTES PT RECEIVED FROM ER VIA RADHA. DAUGHTER RACHID [phone] AT BEDSIDE. DENIES SOB AND CP AT THIS TIME. PLACED ON 2L O2 VIA NC, BREATHING EVEN AND UNLABORED. SOB ON EXERTION. PLACED ON TELE MONITOR SHOWING VPACING / AFIB WITH HR 70. IV TO RIGHT HAND PATENT AND INTACT. ORIENTED PT TO ROOM AND CALL LIGHT. HOB ELEVATED. BELONGINGS LIST COMPLETED. BED IN LOW/LOCKED POSITION WITH CALL LIGHT IN REACH. BILATERAL UPPER SIDE RAILS IN PLACE. WILL CONTINUE TO MONITOR
--- NOTE | 2018-11-11 19:47 | NUR ---
TELE/RN NOTES CLARIFIED WITH SHAHEEN OLVERA NP ORDER FOR NITROGLYCERIN. WITH ORDERS TO CHANGE NITROGLYCERIN 0.4MG SL ONCE TO NITROGLYCERIN 0.4MG SL PRN FOR CHEST PAIN, MAY REPEAT Q5MIN X3 ORDERS READBACK FOR VERIFICATION. WILL CARRY OUT ORDERED
--- NOTE | 2018-11-11 19:50 | NUR ---
TELE/RN NOTES TECH AT BEDSIDE FOR ECHO
[2018-11-11 20:00] VITALS: BP 138/85
[2018-11-11] MEDS ORDERED: NITROGLYCERIN 0.4 MG/TAB BOTTLE SL PRN (20:30)
[2018-11-11] MEDS: OXYBUTYNIN CHLORIDE 5 MG TABLET PO SCH (21:04)
[2018-11-11] MEDS: BLOOD SUGAR DIAGNOSTIC 1 EACH STRIP IN SCH (21:04)
[2018-11-11] MEDS: INSULIN REGULAR, HUMAN 100 UNIT/ML 3 ML VIAL SQ PRN (21:07)
[2018-11-11] MEDS: IPRATROPIUM NEB FS 0.5 MG/2.5 ML AMPUL.NEB NEB SCH ×2 (23:00→23:02)
[2018-11-12] VITALS: BP 105/80
[2018-11-12 04:00] VITALS: BP 120/58
[2018-11-12 06:14] LABS: BASOPHILS % (AUTO) 0.7 % (0.0-2.0); EOSINOPHILS % (AUTO) 1.6 % (0.0-6.0); HEMATOCRIT 33 % (33-45); HEMOGLOBIN 11.5 g/dL (11.5-14.8); LYMPHOCYTES # (AUTO) 2.5 /CMM (0.8-4.8); LYMPHOCYTES % (AUTO) 38.1 % (20.0-44.0); MEAN CORPUSCULAR HGB CONC 34 g/dl (31.0-36.0); MEAN CORPUSCULAR VOLUME 92 fL (82-100); MONOCYTES # (AUTO) 0.7 /CMM (0.1-1.30); NEUTROPHILS # (AUTO) 3.2 /CMM (1.8-8.9); NEUTROPHILS % (AUTO) 49.6 % (43.0-81.0); PLATELET COUNT (AUTO) 137 /CMM (150-450); RED BLOOD CELL COUNT(AUTO) 3.62 MIL/uL (4.0-5.2); WHITE BLOOD COUNT (AUTO) 6.5 K/uL (4.3-11.0)
[2018-11-12] MEDS: BLOOD SUGAR DIAGNOSTIC 1 EACH STRIP IN SCH ×4 (06:35→21:29)
[2018-11-12 06:41] LABS: CALCIUM, SERUM 9.1 mg/dL (8.5-10.1); CARBON DIOXIDE 24 mmol/L (21-32); CHLORIDE 109 mmol/L (98-107); CHOLESTEROL 164 mg/dL (<200); CREATININE 1.1 mg/dL (0.6-1.3); GLUCOSE 87 mg/dL (74-106); HDL CHOLESTEROL 32 mg/dL (40-60); LDL 83 mg/dL (0-99); MAGNESIUM 1.6 mg/dL (1.8-2.4); PHOSPHORUS 4.3 mg/dL (2.5-4.9); POTASSIUM 4.2 mmol/L (3.5-5.1); SODIUM SERUM 145 mmol/L (136-145); THYROID STIMULATING HORMONE 0.556 uIU/mL (0.358-3.74); TRIGLYCERIDES 319 mg/dL (30-150); UREA NITROGEN, BLOOD 33 mg/dL (7-18)
[2018-11-12] MEDS: INSULIN REGULAR, HUMAN 100 UNIT/ML 3 ML VIAL SQ PRN ×4 (06:47→21:32)
[2018-11-12] MEDS: IPRATROPIUM NEB FS 0.5 MG/2.5 ML AMPUL.NEB NEB SCH ×2 (07:25→15:43)
[2018-11-12] MEDS: PANTOPRAZOLE 40 MG TABLET.DR PO SCH (07:30)
--- NOTE | 2018-11-12 07:33 | NUR ---
TELE/RN CLOSING NOTES PT AWAKE, SITTING UP IN BED AND WATCHING TV. REMAINS ON 2L O2 VIA NC, BREATHING EVEN AND UNLABORED. DENIES SOB AND CP AT THIS TIME. TELE MONITOR SHOWING VPACING / AFIB WITH HR 60. IV TO RIGHT HAND PATENT AND INTACT. NO SIGNIFICANT CHANGES OVERNIGHT. UNABLE TO COLLECT URINE SPECIMEN. ENDORSED TO DAY SHIFT. ALL NEEDS MET. PT AWARE FOR NPO UNTIL CARDIO CONSULT. BED IN LOW.LOCKED POSITION WITH CALL LIGHT IN REACH, BILAT. UPPER SIDE RAILS IN PLACE AND BED ALARM ON FOR SAFETY. ENDORSED TO DAY SHIFT RN DARI.
[2018-11-12 08:00] VITALS: BP 128/62
--- NOTE | 2018-11-12 08:00 | NUR ---
MS RN NOTES PATIENT IN BED RESTING NO SOB OR ACUTE DISTRESS NOTED. PATIENT ALERT, ORIENTED X4 GEORGIAN SPEAKING. PERIPHERAL IV INTACT PATENT. BED IN LOW LOCKED POSITION. CALL LIGHT WITHIN REACH. WILL CONTINUE TO MONITOR.
[2018-11-12] MEDS: FENOFIBRATE NANOCRYS (145 MG) 145 MG TABLET PO SCH (08:26)
[2018-11-12] MEDS ORDERED: RIVAROXABAN 10 MG TABLET PO SCH (09:00)
[2018-11-12] MEDS: OXYBUTYNIN CHLORIDE 5 MG TABLET PO SCH (09:00)
[2018-11-12] MEDS: LOSARTAN POTASSIUM 50 MG TABLET PO SCH (09:00)
[2018-11-12] MEDS: VALSARTAN 80 MG TABLET PO SCH (09:00)
[2018-11-12] MEDS: MEMANTINE HCL 5 MG TABLET PO SCH ×2 (09:00→17:00)
[2018-11-12] MEDS: METOPROLOL TARTRATE 25 MG TABLET PO SCH ×2 (09:00→16:52)
[2018-11-12] MEDS: FLUTICASONE/VILANTEROL 1 EACH BLST.W.DEV IH SCH (09:00)
[2018-11-12] MEDS ORDERED: MAGNESIUM OXIDE 400 MG TABLET PO SCH (09:00)
[2018-11-12] MEDS ORDERED: ASPIRIN 81 MG TAB.CHEW PO SCH (09:00)
[2018-11-12] MEDS ORDERED: FUROSEMIDE 40 MG TABLET PO SCH (09:00)
[2018-11-12] MEDS ORDERED: METOPROLOL TARTRATE INJ 5 MG/5 ML AMPUL IVP PRN (10:30)
[2018-11-12] MEDS ORDERED: NITROGLYCERIN 0.4 MG/TAB BOTTLE SL PRN (10:30)
[2018-11-12] MEDS ORDERED: IV NS 0.9% 500 ML IV PRN (10:30)
[2018-11-12] MEDS ORDERED: NITROGLYCERIN 0.4 MG/TAB BOTTLE ONE (10:37)
[2018-11-12] MEDS ORDERED: IOHEXOL-350 100 ML VIAL IV ONE (10:37)
[2018-11-12] MEDS ORDERED: CT SWABBABLE VALVE TRANS SET 1 EA INFUS.SET MC ONE (10:37)
[2018-11-12] MEDS ORDERED: IV NS 0.9% 250 ML IV ONE (10:37)
[2018-11-12] MEDS: Magnesium 1GM/D5W 100ML PREMIX 100 ML IV SCH ×2 (11:16→12:43)
--- NOTE | 2018-11-12 11:16 | NUR ---
MS RN NOTES PATIENT RETURNED FROM RADIOLOGY POST CT ANGIO. PATIENT IN STABLE CONDITION. ALERT, ORIENTED X4. DENIES ANY DISCOMFORT. STARTED MAGNESIUM IV ORDERED. WILL CONTINUE TO MONITOR.
[2018-11-12 13:28] LABS: APPEARANCE,URINE CLEAR (CLEAR); BILIRUBIN,URINE NEGATIVE (NEGATIVE); BLOOD, URINE NEGATIVE Ery/uL (NEGATIVE); COLOR,URINE YELLOW (YELLOW); KETONES,URINE NEGATIVE (NEGATIVE); LEUKOCYTE ESTERASE ,URINE TRACE (NEGATIVE); NITRITE, URINE NEGATIVE (NEGATIVE); PH,URINE 5.5 (5.0-8.0); PROTEIN,URINE TRACE mg/dl (NEGATIVE); UGLUCOSE NEGATIVE (NEGATIVE); UROBILINOGEN,URINE 0.2 EU/dL (0.2)
[2018-11-12 13:35] LABS: SQUAMOUS EPITHELIAL CELL,UR Few /HPF (None Seen)
[2018-11-12 13:36] LABS: URIC ACID CRYSTALS,URINE Moderate /HPF (None Seen)
[2018-11-12 13:37] LABS: BACTERIA,URINE Rare /HPF (None Seen); RBC,URINE 0-2 /HPF (0-2)
[2018-11-12 13:53] LABS: EOSINOPHIL,URINE None Seen
[2018-11-12 14:01] LABS: CREATININE, URINE 102.1 MG/DL (30.0-125.0); URINE TOTAL PROTEIN 27.7 mg/dL (0-11.9)
[2018-11-12 16:00] VITALS: BP 131/87
[2018-11-12] MEDS ORDERED: RIVAROXABAN 15 MG TABLET PO SCH (17:00)
--- NOTE | 2018-11-12 18:53 | NUR ---
PATIENT IN BED RESTING NO SOB OR ACUTE DISTRESS NOTED. PATIENT ALERT, ORIENTED X4 . ALL DUE MEDICATIONS ADMINISTERED. ALL NEEDS MET. PERIPHERAL IV INTACT PATENT. WILL ENDORSE TO CARE TO PM SHIFT.
[2018-11-12] MEDS ORDERED: ALPRAZOLAM 0.25 MG TABLET PO PRN (19:30)
--- NOTE | 2018-11-12 19:38 | NUR ---
MS/RN OPENING NOTES PT RECEIVED AWAKE, SITTING UP IN BED. [place] SPEAKING. NO NEEDS EXPRESSED AT THIS TIME PER [place] SPEAKING STAFF. DENIES CP AND SOB AT THIS TIME. IN NO ACUTE DISTRESS. IV TO RAC PATENT AND INTACT. ON 2L O2 VIA NC, BREATHING EVEN AND UNLABORED. BED IN LOW/LOCKED POSITION WITH CALL LIGHT IN REACH. HIGH FOWLERS POSITION. BILAT. UPPER SIDE RAILS IN PLACE. WILL CONTINUE TO MONITOR
[2018-11-12 20:00] VITALS: BP 116/60
[2018-11-13] MEDS: IPRATROPIUM NEB FS 0.5 MG/2.5 ML AMPUL.NEB NEB SCH ×2 (00:09→07:16)
--- NOTE | 2018-11-13 06:44 | NUR ---
MS/RN CLOSING NOTES PT RESTING COMFORTABLY IN BED. NIGERIAN SPEAKING, ABLE TO MAKE NEEDS KNOWN WITH NIGERIAN SPEAKING STAFF. ON/OFF 2L O2 VIA NC, BREATHING EVEN AND UNLABORED. DENIES SOB AND CHEST PAIN THROUGHOUT SHIFT. IV TO RAC PATENT AND INTACT. NO SIGNIFICANT CHANGES OVERNIGHT. ALL NEEDS MET. SLEPT WELL. BED IN LOW/LOCKED POSITION WITH CALL LIGHT IN REACH. BILATERAL UPPER SIDE RAILS IN PLACE. HOB ELEVATED. WILL ENDORSE TO DAY SHIFT RN DARI.
[2018-11-13] MEDS: BLOOD SUGAR DIAGNOSTIC 1 EACH STRIP IN SCH ×2 (06:50→12:31)
[2018-11-13] MEDS: INSULIN REGULAR, HUMAN 100 UNIT/ML 3 ML VIAL SQ PRN ×2 (07:02→11:36)
--- NOTE | 2018-11-13 07:30 | NUR ---
RECEIVED PT. ALERT AND ORIENTED X3.REQUESTS IV OUT,[place] SPEAKING ONLY.UP AND ABOUT IN RM.
[2018-11-13 08:00] VITALS: BP 149/95
[2018-11-13] MEDS: FLUTICASONE/VILANTEROL 1 EACH BLST.W.DEV IH SCH ×3 (08:29→10:00)
[2018-11-13] MEDS: LOSARTAN POTASSIUM 50 MG TABLET PO SCH (08:30)
[2018-11-13] MEDS: FENOFIBRATE NANOCRYS (145 MG) 145 MG TABLET PO SCH (08:30)
[2018-11-13] MEDS: OXYBUTYNIN CHLORIDE 5 MG TABLET PO SCH (08:30)
[2018-11-13] MEDS: MEMANTINE HCL 5 MG TABLET PO SCH ×2 (08:30→08:47)
[2018-11-13] MEDS: VALSARTAN 80 MG TABLET PO SCH (08:30)
[2018-11-13] MEDS: METOPROLOL TARTRATE 25 MG TABLET PO SCH (08:31)
[2018-11-13] MEDS: PANTOPRAZOLE 40 MG TABLET.DR PO SCH (08:31)
[2018-11-13] MEDS ORDERED: DILTIAZEM HCL CD 240 MG PO SCH (09:00)
[2018-11-13] MEDS ORDERED: VALSARTAN 80 MG TABLET PO SCH (09:00)
--- NOTE | 2018-11-13 10:00 | NUR ---
DTR. IN TO VISIT.MED COMPLIANT.PER DTR'S REQUEST IV HEP LOCK REMOVED.
[2018-11-13 11:05] VITALS: BP 115/60
--- NOTE | 2018-11-13 14:05 | NUR ---
DR. GALEAS,DR. PEACE IN ORDERS GIVEN.MED COMPLIANT.GIVEN ALL INSTRUCTIONS,BELONGING SHEET SIGNED ALONG WITH OTHER PAPERWORK.AMBULATED TO LOBBY ACCOMPANIED BY DTR. AND NEW PATIENT ESCORT REFUSED W/C.
[2018-11-17] MEDS ORDERED: ALENDRONATE 70 MG TABLET PO SCH (18:30)
== END 2018-11-13 14:00 | disposition home health service (06) | DRG 302 ==
LOC: ER 15:44 → TELE 18:35 → MED 11-12 11:45
PROVIDERS: ADMIT Nurse Practitioner Acute Care; ATTEND Internal Medicine
DX: I25.10 Atherosclerotic heart disease of native coronary artery without angina pectoris (principal); N17.0 Acute kidney failure with tubular necrosis; I13.0 Hypertensive heart and chronic kidney disease with heart failure and stage 1 through stage 4 chronic kidney disease, or unspecified chronic kidney disease; I48.92 Unspecified atrial flutter; I50.32 Chronic diastolic (congestive) heart failure; D68.59 Other primary thrombophilia; I48.91 Unspecified atrial fibrillation; N18.9 Chronic kidney disease, unspecified; E11.22 Type 2 diabetes mellitus with diabetic chronic kidney disease; E78.5 Hyperlipidemia, unspecified; Z86.73 Personal history of transient ischemic attack (TIA), and cerebral infarction without residual deficits; E66.9 Obesity, unspecified; Z68.30 Body mass index [BMI] 30.0-30.9, adult; E83.42 Hypomagnesemia; Z95.0 Presence of cardiac pacemaker; J42 Unspecified chronic bronchitis
CPT/HCPCS: 36415; 71045-TC; 75574; 80048-TC; 80061-TC; 81000-TC; 82570-TC; 82962-TC; 83735-TC; 83880; 84100-TC; 84155-TC; 84300-TC; 84443-TC; 84484-TC; 85025-TC; 87081-TC; 93307-TC; G0378; J1815; J3475; J7050; Q9967